=== PATIENT | female | born 1950 | race African-American/Black ===

== ENCOUNTER 2019-10-21 08:30 | Outpatient (CLI) | payer MEDICARE, SELFPAY ==
--- NOTE | ~2019-10-21 | DEXA_ITS ---
Bone Density Report Name: Emma Fraire Age: 69 Sex: Female Ethnicity: Black Date of : 1950 Indication: postmenopausal; hysterectomy; Referring Provider: CRISTIANE HAMM Study: Bone densitometry was performed. Exam Date: October 21, 2019 Accession number: [id number] Bone Density: Region BMD T-score Z-score Classification AP Spine (L1-L4) 1.121 0.7 2.1 Normal Femoral Neck (Left) 0.799 -0.5 0.4 Normal Total Hip (Left) 0.925 -0.1 0.4 Normal Total Hip Bilateral Avg 0.895 -0.4 0.3 Normal Femoral Neck (Right) 0.711 -1.2 -0.3 Osteopenia Total Hip (Right) 0.864 -0.6 0.1 Normal World Health Organization criteria for BMD impression classify patients as: Normal (T-score at or above -1.0), Osteopenia (T-score between -1.0 and -2.5), or Osteoporosis (T-score at or below -2.5). 10-year Fracture Risk(1): Major Osteoporotic Fracture 3.8% Hip Fracture 0.5% Reported Risk Factors: [place] (Black), Neck BMD=0.711, BMI=22.5 (1) FRAX(R) Version 3.08. Fracture probability calculated for an untreated patient. Fracture probability may be lower if the patient has received treatment. Previous Exams: Region Exam Age BMD T-score BMD Change BMD Change Date g/cm2 vs Baseline vs Previous AP Spine(L1-L4) 10/21/2019 69 1.121 0.7 -0.179(-13.8%) -0.114(-9.2%)* 05/13/2016 65 1.235 1.7 -0.065(-5.0%)# -0.032(-2.5%)* 04/07/2014 63 1.267 2.0 -0.033(-2.6%)# 0.026(2.1%)# 06/13/2011 60 1.241 1.8 -0.059(-4.6%)# -0.046(-3.6%)# 03/16/2007 56 1.287 2.2 -0.013(-1.0%) -0.013(-1.0%) 04/19/2002 51 1.301 2.3 Total Hip(Left) 10/21/2019 69 0.925 -0.1 -0.072(-7.2%)# -0.029(-3.0%)* 05/13/2016 65 0.954 0.1 -0.043(-4.3%)# -0.034(-3.5%)* 04/07/2014 63 0.988 0.4 -0.009(-0.9%)# -0.005(-0.5%)# 06/13/2011 60 0.993 0.4 -0.004(-0.4%)# 0.010(1.1%)# 03/16/2007 56 0.983 0.3 -0.014(-1.4%) -0.014(-1.4%) 04/19/2002 51 0.997 0.4 Total Hip(Right) 10/21/2019 69 0.864 -0.6 -0.090(-9.4%)# -0.048(-5.2%)* 05/13/2016 65 0.912 -0.2 -0.042(-4.4%)# -0.014(-1.5%) 04/07/2014 63 0.926 -0.1 -0.028(-2.9%)# -0.001(-0.1%)# 06/13/2011 60 0.926 -0.1 -0.027(-2.9%)# -0.012(-1.3%)# 03/16/2007 56 0.938 0.0 -0.015(-1.6%) -0.015(-1.6%) 04/19/2002 51 0.954 0.1 *Denotes significance at 95% confidence level, LSC for AP Spine = 0.022 g/cm2, LSC for Total Hip = 0.027 g/cm2 Clinical Information Provided by Patient: Has used the following medica
--- NOTE | ~2019-10-21 | MM_ITS ---
EXAMINATION: MM screening [facility] BI w lexa HISTORY: Screening mammogram, family history of breast cancer in her daughter. TECHNIQUE: Craniocaudal and mediolateral oblique 3-D tomosynthesis images were obtained and synthetic 2-D images were generated. CAD analysis was submitted and interpreted. COMPARISON: 07/17/2018, 06/26/2017 BREAST PARENCHYMAL COMPOSITION: There are scattered areas of fibroglandular density. FINDINGS: Scattered benign-appearing calcifications are present. There is no evidence of suspicious m ass, calcification, or architectural distortion to suggest malignancy in either breast. There has bee n no suspicious interval change. IMPRESSION: 1. No mammographic evidence of malignancy. 2. Recommend routine screening mammography in one year. BI-RADS Category 2: Benign finding(s). Reviewed, dictated and finalized at location A.
== END 2019-10-21 08:31 | disposition home or self-care (01) ==
PROVIDERS: PCP Family Medicine; Visit Provider Family Medicine
DX: Z12.31 Encounter for screening mammogram for malignant neoplasm of breast (principal); Z78.0 Asymptomatic menopausal state; E55.9 Vitamin D deficiency, unspecified; M85.851 Other specified disorders of bone density and structure, right thigh
CPT/HCPCS: 77063; 77067; 77080

== ENCOUNTER 2019-11-15 00:04 | Outpatient (CLI) | payer MEDICARE, SELFPAY ==
[2019-11-15 17:13] LABS: SARS-CoV-2 RNA PCR Negative
== END 2019-11-15 00:05 | disposition home or self-care (01) ==
LOC: ANHCOVIDDT 00:05
PROVIDERS: PCP Family Medicine; Visit Provider Internal Medicine Gastroenterology
DX: Z01.812 Encounter for preprocedural laboratory examination (principal); Z20.828 Contact with and (suspected) exposure to other viral communicable diseases
CPT/HCPCS: 87635; C9803; U0003

== ENCOUNTER 2019-11-17 01:49 | Day surgery (SDC) | payer MEDICARE, SELFPAY ==
[2019-11-10 13:40] VITALS: BMI 22.6
[2019-11-17 07:10] VITALS: BP 161/96; PULSE 97; RESP 18; TEMP 36.2; O2SAT 100
[2019-11-17] MEDS: LACTATED RINGERS 1,000 ML 150 ML IV CONT (07:24)
--- NOTE | 2019-11-17 07:35 | WPDANESEPPF ---
Anes - Initial Pre Proc Eval Procedure: Operation Date: 11/17/19 08:30 Proposed Procedures p Screening Colonoscopy - Kaushik Tarango MD Date/Time: 11/17/19 07:35 Surgeon: Kaushik Tarango MD Pre Op Diagnosis: Hx Colon Polyps Patient Data Age: 69 Gender: F Height: 1.63 m Weight: 57.9 kg Last Vital Signs Temp 36.2 C L 11/17/19 07:10 Pulse 97 11/17/19 07:10 Resp 18 11/17/19 07:10 BP 161/96 H 11/17/19 07:10 Pulse Ox 100 11/17/19 07:10 Allergies Allergy/AdvReac Type Severity Reaction Status Date / Time hydrochlorothiazide Allergy Unknown burning Verified 11/17/19 07:09 sensation leg lisinopril Allergy Unknown cough Verified 11/17/19 07:09 Home Medications Medication Instructions Recorded Confirmed Type clonidine HCl 0.2 mg tablet 0.4 mg PO QPM #180 tablet 06/09/19 11/10/19 Rx simvastatin 40 mg tablet 40 mg PO DAILY #90 tablet 06/15/19 11/10/19 Rx amitriptyline 25 mg tablet 25 mg PO .qhs #90 tablet 08/09/19 11/10/19 Rx losartan 50 mg tablet 50 mg .ROUTE .COMPLEX #90 tablet 09/08/19 11/10/19 Rx aspirin [Aspirin Low Dose] 81 mg PO DAILY 11/10/19 11/10/19 History methylcellulose (with sugar) 1 tbsp PO DAILY 11/10/19 11/10/19 History [Citrucel (sucrose)] multivit with min-folic acid 0.4 mg PO DAILY 11/10/19 11/10/19 History [Adult One Daily Multivitamin] Patient hx anesthesia problems: none Family hx anesthesia problems: none PMFSH Past Medical History Medical History (Updated 11/16/19 @ 09:05 by Nelson Sharma DO) Chronic pain Family history of colonic polyps Hypertension Mixed hyperlipidemia Osteopenia 09/2019 right femoral neck (-0.3) Surgical History Surgical History (Updated 11/16/19 @ 09:05 by Nelson Sharma DO) History of hysterectomy Family History Family History (Updated 07/07/18 @ 10:40 by DOCTOR UNKNOWN) Father Diabetes mellitus Hypertension Family history of elevated blood lipids Mother Diabetes mellitus Family history of glaucoma Hypertension Family history of elevated blood lipids Family history of cardiovascular disease Sibling Hypertension Family history of malignant neoplasm of uterus, Onset Age: 36 Other Colon polyp Family history of hypercholesterolemia Family history of malignant neoplasm of breast in first degree relative Social History Social History Smoking status: Never smoker Alcohol intake: current Anes - Eval Final PreProcedure Day of Procedure 11/17/19 07:35 Patient weight: normal Heart: regular rate and rhythm Lungs: clear to auscultation and normal air movement Airway: Mallampati scale class II Neurological: alert and oriented Last oral intake: >/= 8 hours ASA classification: II Emergent: no Anesthetic plan: proceed Anesthesia type and monitoring: general GIVS and standard monitoring Informed Consent: The patient's anesthetic plan and its attendant risks and benefits were discussed with the patient/family/POA. Questions were solicited and answers provided to the satisfaction of the patient/family/POA.
--- NOTE | 2019-11-17 08:12 | WPDGICN ---
Assessment and Plan Assessment and plan (1) Family history of colonic polyps: Code(s): Z83.71 - Family history of colonic polyps Status: Acute Assessment and Plan: Patient's mother has had colon polyps. Would recommend patient have follow-up colonoscopy at about every 5 year interval. (2) Family history of colon cancer requiring screening colonoscopy: Code(s): Z80.0 - Family history of malignant neoplasm of digestive organs Status: Acute Assessment and Plan: Patient reports that her sister has had colon cancer. Plan is for patient to continue surveillance colonoscopy at 5 year intervals. GI Consult Note Consult date/time: 11/17/19 08:12 HPI: Emma Fraire is a 69 year old female Seen in evaluation at the request of Dr. Rico Villa. Patient presents today for neoplasia screening. Her current weight appetite bowel movements are normal. She denies abdominal pain. She denies any blood in her stools. She reports a distant history of colon polyps. Her family history is significant that her mother is also had colon polyps a sister has had colon cancer. At the present time she states that her current weight appetite bowel movements are normal. She denies any blood in her stools.Her last colonoscopy was in 2013. Review of Systems Review of Systems: All systems reviewed & are unremarkable except as noted in HPI and below PMFSH Past Medical History Medical History Chronic pain Family history of colonic polyps Hypertension Mixed hyperlipidemia Osteopenia 09/2019 right femoral neck (-0.3) Surgical History Surgical History History of hysterectomy Family History Family History Father Diabetes mellitus Hypertension Family history of elevated blood lipids Mother Diabetes mellitus Family history of glaucoma Hypertension Family history of elevated blood lipids Family history of cardiovascular disease Sibling Hypertension Family history of malignant neoplasm of uterus, Onset Age: 36 Other Colon polyp Family history of hypercholesterolemia Family history of malignant neoplasm of breast in first degree relative Social History Social History Smoking status: Never smoker Alcohol intake: current Meds Home Medications and Allergies Home Medications Medication Instructions Recorded Confirmed Type clonidine HCl 0.2 mg tablet 0.4 mg PO QPM #180 tablet 06/09/19 11/10/19 Rx simvastatin 40 mg tablet 40 mg PO DAILY #90 tablet 06/15/19 11/10/19 Rx amitriptyline 25 mg tablet 25 mg PO .qhs #90 tablet 08/09/19 11/10/19 Rx losartan 50 mg tablet 50 mg .ROUTE .COMPLEX #90 tablet 09/08/19 11/10/19 Rx aspirin [Aspirin Low Dose] 81 mg PO DAILY 11/10/19 11/10/19 History methylcellulose (with sugar) 1 tbsp PO DAILY 11/10/19 11/10/19 History [Citrucel (sucrose)] multivit with min-folic acid 0.4 mg PO DAILY 11/10/19 11/10/19 History [Adult One Daily Multivitamin] Allergies Allergy/AdvReac Type Severity Reaction Status Date / Time hydrochlorothiazide Allergy Unknown burning Verified 11/17/19 07:09 sensation leg lisinopril Allergy Unknown cough Verified 11/17/19 07:09 Vital Signs Vital Signs - 24 hr 11/17/19 07:10 Temperature 36.2 C L Pulse Rate 97 Respiratory Rate 18 Blood Pressure 161/96 H Pulse Oximetry 100 Exam Narrative: Exam Narrative: Physical exam reveals patient to be alert. Vital signs stable. HEENT exam unremarkable. Lungs are clear to auscultation and percussion. Heart is without murmur or extra sounds. Abdominal exam bowel sounds are present soft she has mild superficial tenderness in the left groin area. Extremities are without clubbing cyanosis or edema. Digital external rectal exam normal.
[2019-11-17 09:02] VITALS: BP 115/73; PULSE 71; RESP 19; O2SAT 100
[2019-11-17 09:12] VITALS: BP 121/79; PULSE 71; RESP 19; O2SAT 100
[2019-11-17 09:22] VITALS: BP 158/96; PULSE 67; RESP 19; O2SAT 100
== END 2019-11-17 09:44 | disposition home or self-care (01) ==
PROVIDERS: PCP Family Medicine; Visit Provider Internal Medicine Gastroenterology
PROC: 0DJD8ZZ Inspection of Lower Intestinal Tract, Via Natural or Artificial Opening Endoscopic (ICD-10-PCS; CPT 45378; principal; 2019-11-17 08:30)
DX: Z12.11 Encounter for screening for malignant neoplasm of colon (principal); D12.8 Benign neoplasm of rectum; K57.30 Diverticulosis of large intestine without perforation or abscess without bleeding; K64.8 Other hemorrhoids; Z80.0 Family history of malignant neoplasm of digestive organs; Z83.71 Family history of colonic polyps; Z79.82 Long term (current) use of aspirin; I10 Essential (primary) hypertension; E78.2 Mixed hyperlipidemia; M85.80 Other specified disorders of bone density and structure, unspecified site
CPT/HCPCS: 45385; 88305; J2704; J7120

== ENCOUNTER 2020-11-24 10:31 | Outpatient (CLI) | payer MEDICARE, SELFPAY ==
--- NOTE | ~2020-11-24 | MM_ITS ---
EXAMINATION: MM screening [facility] BI w lexa HISTORY: Screening TECHNIQUE: Craniocaudal and mediolateral oblique 3-D tomosynthesis images were obtained and synthetic 2-D images were generated. CAD analysis was submitted and interpreted. COMPARISON: Comparison to multiple prior studies sequentially, with oldest reviewed study dated 05/2017. BREAST PARENCHYMAL COMPOSITION: The breasts are heterogeneously dense, which may obscure small masses . FINDINGS: No significant change to bilateral breast calcifications. There are tissue markers in the b reasts, consistent with previous benign biopsies. There is no evidence of suspicious mass, calcificat ion, or architectural distortion to suggest malignancy in either breast. There has been no suspicious interval change. IMPRESSION: 1. No mammographic evidence of malignancy. 2. Recommend routine screening mammography in one year. BI-RADS Category 2: Benign finding(s). Reviewed, dictated and finalized at location A.
== END 2020-11-24 10:32 | disposition home or self-care (01) ==
LOC: ANHIMG 10:35
PROVIDERS: PCP Family Medicine; Visit Provider Family Medicine
DX: Z12.31 Encounter for screening mammogram for malignant neoplasm of breast (principal)
CPT/HCPCS: 77063; 77067

== ENCOUNTER 2022-03-08 09:58 | Outpatient (CLI) | payer MEDICARE, SELFPAY ==
--- NOTE | ~2022-03-08 | DEXA_ITS ---
Bone Density Report Name: KEM RAMIREZ Age: 71 Sex: Female Ethnicity: Black Date of : 1950 Indication: postmenopausal; screening for osteoporosis; hysterectomy; Referring Provider: DANY RICHARDSON Study: Bone densitometry was performed. Exam Date: March 08, 2022 Accession number: [id number] Bone Density: Region BMD T-score Z-score Classification AP Spine(L1-L4) 1.150 0.9 2.5 Normal Femoral Neck (Left) 0.805 -0.4 0.5 Normal Total Hip (Left) 0.886 -0.5 0.3 Normal Femoral Neck (Right) 0.750 -0.9 0.1 Normal Total Hip (Right) 0.845 -0.8 0.0 Normal Total Hip Mean 0.866 -0.7 0.2 Normal World Health Organization criteria for BMD impression classify patients as: Normal (T-score at or above -1.0), Osteopenia (T-score between -1.0 and -2.5), or Osteoporosis (T-score at or below -2.5). 10-year Fracture Risk: FRAX not reported because: All T-scores for Spine Total, Hip Total, Femoral Neck at or above -1.0 Previous Exams: Region Exam Age BMD T-score BMD Change BMD Change Date g/cm2 vs Baseline vs Previous AP Spine (L1-L4) 03/08/2022 71 1.150 0.9 -0.118 (-9.3%) 0.028 (2.5%)* 10/21/2019 69 1.121 0.7 -0.146 (-11.5% -0.114 (-9.2%) 05/13/2016 65 1.235 1.7 -0.032 (-2.5%) -0.032 (-2.5%) 04/07/2014 63 1.267 2.0 Total Hip(Left) 03/08/2022 71 0.886 -0.5 -0.102 (-10.3% -0.039 (-4.2%) 10/21/2019 69 0.925 -0.1 -0.063 (-6.4%) -0.029 (-3.0%) 05/13/2016 65 0.954 0.1 -0.034 (-3.5%) -0.034 (-3.5%) 04/07/2014 63 0.988 0.4 Total Hip(Right) 03/08/2022 71 0.845 -0.8 -0.080 (-8.7%) -0.019 (-2.2%) 10/21/2019 69 0.864 -0.6 -0.062 (-6.7%) -0.048 (-5.2%) 05/13/2016 65 0.912 -0.2 -0.014 (-1.5%) -0.014 (-1.5%) 04/07/2014 63 0.926 -0.1 *Denotes significance at 95% confidence level, LSC for AP Spine = 0.022 g/cm2, LSC for Total Hip = 0.027 g/cm2 Clinical Information Provided by Patient: Has used the following medications: Vitamin D Has the following medical conditions: Hysterectomy Patient maximum height was 63 Menopause Age: 49 No regular weight bearing exercise Onset of menses at age 13 Number of children 3 Impression: The patient has normal bone mass. The BMD for the Total Hip(Left) decreased, changing by -4.2% since the last DXA exam. Discussion: BONE DENSITY IS ABOVE THE MINIMUM DESIRABLE LEVEL AT ALL SKELETAL SITES TESTED. This patient?s bone mineral density i
--- NOTE | ~2022-03-08 | MM_ITS ---
EXAMINATION: MM screening [facility] BI w lexa HISTORY: Screening TECHNIQUE: Craniocaudal and mediolateral oblique 3-D tomosynthesis images were obtained and synthetic 2-D images were generated. CAD analysis was submitted and interpreted. COMPARISON: Comparison to multiple prior studies sequentially, with oldest reviewed study dated 05/2017. BREAST PARENCHYMAL COMPOSITION: The breasts are heterogeneously dense, which may obscure small masses FINDINGS: Stable benign-appearing bilateral breast calcifications. There is no evidence of suspicious mass, calcification, or architectural distortion to suggest malignancy in either breast. There has b een no suspicious interval change. IMPRESSION: 1. No mammographic evidence of malignancy. 2. Recommend routine screening mammography in one year. BI-RADS Category 2: Benign finding(s). Reviewed, dictated and finalized at location A.
== END 2022-03-08 09:59 | disposition home or self-care (01) ==
PROVIDERS: PCP Family Medicine; Visit Provider Physician Assistant
DX: Z12.31 Encounter for screening mammogram for malignant neoplasm of breast (principal); Z78.0 Asymptomatic menopausal state
CPT/HCPCS: 77063; 77067; 77080

== ENCOUNTER 2023-06-25 12:59 | Outpatient (CLI) | payer MEDICARE, SELFPAY ==
--- NOTE | ~2023-06-25 | MM_ITS ---
EXAMINATION: MM screening [facility] BI w lexa HISTORY: Screening TECHNIQUE: Craniocaudal and mediolateral oblique 3-D tomosynthesis images were obtained and synthetic 2-D images were generated. CAD analysis was submitted and interpreted. COMPARISON: Comparison to multiple prior studies sequentially, with oldest reviewed study dated 05/2017. BREAST PARENCHYMAL COMPOSITION: Dense: The breasts are heterogeneously dense, which may obscure small masses FINDINGS: Clustered bilateral breast calcifications in the upper outer quadrants and scattered throug hout both breasts are unchanged from prior studies. There is no evidence of suspicious mass, calcific ation, or architectural distortion to suggest malignancy in either breast. There has been no suspicio us interval change. IMPRESSION: 1. No mammographic evidence of malignancy. 2. Recommend routine screening mammography in one year. BI-RADS Category 2: Benign finding(s). Reviewed, dictated and finalized at location A. HYSICAL COMPUTER
== END 2023-06-25 13:00 | disposition home or self-care (01) ==
LOC: ANHIMG 13:01
PROVIDERS: PCP Family Medicine; Visit Provider Family Medicine
DX: Z12.31 Encounter for screening mammogram for malignant neoplasm of breast (principal)
CPT/HCPCS: 77063; 77067

== ENCOUNTER 2024-08-27 13:43 | Outpatient (CLI) | payer MEDICARE, SELFPAY ==
--- NOTE | ~2024-08-27 | MM_ITS ---
EXAMINATION: MM screening [facility] BI w lexa HISTORY: Screening TECHNIQUE: Craniocaudal and mediolateral oblique 3-D tomosynthesis images were obtained and synthetic 2-D images were generated. CAD analysis was submitted and interpreted. COMPARISON: Comparison to multiple prior studies sequentially, with oldest reviewed study dated 05/2017. BREAST PARENCHYMAL COMPOSITION: Not dense: There are scattered areas of fibroglandular density. 3 FINDINGS: Scattered bilateral punctate breast calcifications are not significantly changed from prior examinations. There is no evidence of suspicious mass, calcification, or architectural distortion to suggest malignancy in either breast. There has been no suspicious interval change. IMPRESSION: 1. No mammographic evidence of malignancy. 2. Recommend routine screening mammography in one year. BI-RADS Category 2: Benign finding(s). Reviewed, dictated and finalized at location A.
== END 2024-08-27 13:44 | disposition home or self-care (01) ==
LOC: ANHIMG 13:45
PROVIDERS: PCP Family Medicine; Visit Provider Family Medicine
DX: Z12.31 Encounter for screening mammogram for malignant neoplasm of breast (principal)
CPT/HCPCS: 77063; 77067

== ENCOUNTER 2024-09-06 01:06 | Day surgery (SDC) | payer MEDICARE, SELFPAY ==
[2024-09-02 12:06] VITALS: BMI 20.5
[2024-09-06 08:55] VITALS: BP 166/81; PULSE 114; RESP 20; TEMP 36.6; O2SAT 100
[2024-09-06] MEDS: LACTATED RINGERS 1,000 ML 150 ML IV CONT (09:06)
--- NOTE | 2024-09-06 09:31 | P.PNAN_ITS ---
Anes - Initial Pre Proc Eval Procedure: Operation Date: 09/06/24 10:00 Proposed Procedures p Colonoscopy - Iron Alvarado MD Date/Time: 09/06/24 09:31 Surgeon: Iron Alvarado MD Pre Op Diagnosis: Family history of malignant neoplasm of digestive Patient Data Age: 74 Gender: F Height: 1.63 m Weight: 54.8 kg Last Vital Signs Temp 97.9 F 09/06/24 08:55 Pulse 114 H 09/06/24 08:55 Resp 20 09/06/24 08:55 BP 166/81 H 09/06/24 08:55 Pulse Ox 100 09/06/24 08:55 O2 Del Method Room Air 09/06/24 08:55 Allergies Allergy/AdvReac Type Severity Reaction Status Date / Time lisinopril AdvReac Mild cough Verified 09/06/24 08:53 Home Medications ?Medication ?Instructions ?Recorded ?Confirmed ?Type aspirin 81 mg tablet,delayed 81 mg PO DAILY 11/10/19 09/06/24 History release (Marianna Low Dose Aspirin) multivitamin with minerals-folic 0.4 mg PO DAILY 11/10/19 09/06/24 History acid 0.4 mg tablet (Adult One Daily Multivitamin) cholecalciferol (vitamin D3) 50 50 mcg PO DAILY 09/19/20 09/06/24 History mcg (2,000 unit) capsule mometasone 50 mcg/actuation nasal 2 spray intranasal DAILY 09/19/20 09/06/24 History spray (Nasonex) amlodipine 10 mg tablet 10 mg PO DAILY #90 tabs 02/23/24 09/06/24 Rx clonidine HCl 0.2 mg tablet See Rx Instructions .Route 05/03/24 09/06/24 Rx .COMPLEX #180 tabs amitriptyline 25 mg tablet See Rx Instructions .Route 05/27/24 09/06/24 Rx .COMPLEX #90 tabs simvastatin 40 mg tablet See Rx Instructions .Route 05/27/24 09/06/24 Rx .COMPLEX #90 tabs azilsartan medoxomil 40 1 tablet PO DAILY #90 tabs 08/10/24 09/06/24 Rx mg-chlorthalidone 12.5 mg tablet (Edarbyclor) Patient hx anesthesia problems: none Family hx anesthesia problems: none Results Review: All pre-operative results and documents have been reviewed as part of the pre- operative evaluation. [facility] Past Medical History Medical History Chronic pain Family history of colonic polyps Mixed hyperlipidemia Osteopenia 09/2019 right femoral neck (-0.3) Surgical History Surgical History History of hysterectomy Full hysterectomy 1999 Family History Family History Father Diabetes mellitus Hypertension Family history of elevated blood lipids Mother Diabetes mellitus Family history of glaucoma Hypertension Family history of elevated blood lipids Family history of cardiovascular disease Sibling Hypertension Family history of malignant neoplasm of uterus, Onset Age: 36 Other Colon polyp Family history of hypercholesterolemia Family history of malignant neoplasm of breast in first degree relative Social History Social History Smoking status: Never smoker Alcohol intake: never Alcohol use details: rarely Substance use: current Substance use type: marijuana Other substance usage details: uses marijuana daily Do You Feel Safe in your Home?: Yes Lack of Transportation: No Lack of Food: Never True Current Housing: I Have Housing Concerned About Future Housing: No Difficulty Paying Gas/Electric Bills: No Difficulty Paying for Meds: No Currently Unemployed: No Education: Master's Degree or Higher Difficulty w/ Childcare or Family Care: No Living arrangements: with family Spiritual care concerns: No Anes - Eval Final PreProcedure Day of Procedure 09/06/24 09:31 Patient weight: normal Heart: regular rate and rhythm Lungs: clear to auscultation Airway: Mallampati scale class II Neurological: alert and oriented Last oral intake: >/= 8 hours ASA classification: II Emergent: no Anesthetic plan: proceed Anesthesia type and monitoring: general GIVS and standard monitoring Results Review: All pre-operative results and documents have been reviewed as part of the pre- operative evaluation. Informed Consent: The patient's anesthetic plan and its attendant risks and benefits were discussed with the patient/family/POA. Questions were solicited and answers provided to the satisfaction of the patient/family/POA.
--- NOTE | 2024-09-06 09:53 | P.HP_ITS ---
H&P: HPI History of Present Illness Date/Time: 09/06/24 09:53 Chief Complaint: Family history of colon cancer Narrative: This patient has family history of colorectal cancer. her mother had colorectal cancer at age 62. Review of Systems Review of Systems: All systems reviewed & are unremarkable except as noted in HPI and below PMFSH Past Medical History Medical History Chronic pain Family history of colonic polyps Mixed hyperlipidemia Osteopenia 09/2019 right femoral neck (-0.3) Surgical History Surgical History History of hysterectomy Full hysterectomy 1999 Family History Family History Father Diabetes mellitus Hypertension Family history of elevated blood lipids Mother Diabetes mellitus Family history of glaucoma Hypertension Family history of elevated blood lipids Family history of cardiovascular disease Sibling Hypertension Family history of malignant neoplasm of uterus, Onset Age: 36 Other Colon polyp Family history of hypercholesterolemia Family history of malignant neoplasm of breast in first degree relative Social History Social History Smoking status: Never smoker Alcohol intake: never Alcohol use details: rarely Substance use: current Substance use type: marijuana Other substance usage details: uses marijuana daily Do You Feel Safe in your Home?: Yes Lack of Transportation: No Lack of Food: Never True Current Housing: I Have Housing Concerned About Future Housing: No Difficulty Paying Gas/Electric Bills: No Difficulty Paying for Meds: No Currently Unemployed: No Education: Master's Degree or Higher Difficulty w/ Childcare or Family Care: No Living arrangements: with family Spiritual care concerns: No Meds Home Medications and Allergies Home Medications ?Medication ?Instructions ?Recorded ?Confirmed ?Type aspirin 81 mg tablet,delayed 81 mg PO DAILY 11/10/19 09/06/24 History release (Marianna Low Dose Aspirin) multivitamin with minerals-folic 0.4 mg PO DAILY 11/10/19 09/06/24 History acid 0.4 mg tablet (Adult One Daily Multivitamin) cholecalciferol (vitamin D3) 50 50 mcg PO DAILY 09/19/20 09/06/24 History mcg (2,000 unit) capsule mometasone 50 mcg/actuation nasal 2 spray intranasal DAILY 09/19/20 09/06/24 History spray (Nasonex) amlodipine 10 mg tablet 10 mg PO DAILY #90 tabs 02/23/24 09/06/24 Rx clonidine HCl 0.2 mg tablet See Rx Instructions .Route 05/03/24 09/06/24 Rx .COMPLEX #180 tabs amitriptyline 25 mg tablet See Rx Instructions .Route 05/27/24 09/06/24 Rx .COMPLEX #90 tabs simvastatin 40 mg tablet See Rx Instructions .Route 05/27/24 09/06/24 Rx .COMPLEX #90 tabs azilsartan medoxomil 40 1 tablet PO DAILY #90 tabs 08/10/24 09/06/24 Rx mg-chlorthalidone 12.5 mg tablet (Edarbyclor) Allergies Allergy/AdvReac Type Severity Reaction Status Date / Time lisinopril AdvReac Mild cough Verified 09/06/24 08:53 Vital Signs Vital Signs - 24 hr 09/06/24 08:55 Temperature 97.9 F Pulse Rate 114 H Respiratory Rate 20 Blood Pressure 166/81 H Pulse Oximetry 100 Oxygen Delivery Room Air Exam Const: General: cooperative and healthy appearing Resp: Effort & Inspection: normal respiratory effort and able to speak in complete sentences Auscultation: clear to auscultation bilaterally Cardio: Rate: regular rate Rhythm: regular rhythm GI: Inspection: normal to inspection GI Palp: No No hepatosplenomegaly pres ent Auscultation: normal bowel sounds Rectal Exam: deferred Skin: General skin exam: normal color Psych: Appearance: grossly normal Mental Status: mental status grossly normal Assessment and Plan Assessment and plan (1) Family history of colon cancer requiring screening colonoscopy: Code(s): Z80.0 - Family history of malignant neoplasm of digestive organs Status: Acute Assessment and Plan: The patient is deemed a good candidate for the procedure. Consent signed. Will proceed.
[2024-09-06 10:18] VITALS: BP 127/80; PULSE 83; RESP 18; O2SAT 100
[2024-09-06 10:28] VITALS: BP 129/76; PULSE 80; RESP 20; O2SAT 100
[2024-09-06 10:38] VITALS: BP 136/79; PULSE 79; RESP 20; O2SAT 100
== END 2024-09-06 11:06 | disposition home or self-care (01) ==
PROVIDERS: PCP Family Medicine; Referring Provider Student in an Organized Health Care Education/Training Program; Visit Provider Internal Medicine Gastroenterology
PROC: 0DJD8ZZ Inspection of Lower Intestinal Tract, Via Natural or Artificial Opening Endoscopic (ICD-10-PCS; CPT 45378; principal; 2024-09-06 10:00)
DX: Z12.11 Encounter for screening for malignant neoplasm of colon (principal); K57.30 Diverticulosis of large intestine without perforation or abscess without bleeding; E78.2 Mixed hyperlipidemia; G89.29 Other chronic pain; F12.90 Cannabis use, unspecified, uncomplicated; Z79.82 Long term (current) use of aspirin; Z98.890 Other specified postprocedural states; Z83.719 Family history of colon polyps, unspecified; Z80.3 Family history of malignant neoplasm of breast; Z80.49 Family history of malignant neoplasm of other genital organs; Z80.0 Family history of malignant neoplasm of digestive organs; Z82.49 Family history of ischemic heart disease and other diseases of the circulatory system
CPT/HCPCS: G0105; J2704; J7120

== ENCOUNTER 2025-01-25 11:34 | Outpatient (CLI) | payer MEDICARE, SELFPAY ==
--- NOTE | ~2025-01-25 | CT_ITS ---
EXAMINATION: CT abdomen pelvis wo con DATE: 01/25/2025 12:08 INDICATION: Unspecified abdominal pain TECHNIQUE: Computed tomography (CT) of the abdomen and pelvis was performed without intravenous contrast. Automated exposure control and iterative reconstruction technique were employed. The dose-length product was 355.21 mGy-cm. COMPARISON: None FINDINGS: Lung bases are clear. Heart size is normal. No pericardial or pleural effusion. Liver, gallbladder, spleen, pancreas, bilateral adrenal glands and right kidney are normal. 7 mm left renal cyst. There is mild colonic diverticulosis with a sigmoid predominance. There is no adjacent inflammatory change to suggest diverticulitis. Small bowel and appendix are normal. Bladder is normal. The uterus is not identified and has likely been surgically resected. Transverse likely section scar extending transversely across anterior pelvic wall. No free intraperitoneal gas or fluid. No pathologically enlarged abdominal or pelvic lymphadenopathy. Severe disc height loss at T10-T11 and L5-S1 with mild intervening lumbar and lower thoracic spondylosis. IMPRESSION: 1. No acute intra-abdominal/pelvic process. Reviewed, dictated and finalized at location A.
== END 2025-01-25 11:35 | disposition home or self-care (01) ==
LOC: GOSHIMG 11:34
PROVIDERS: PCP Family Medicine; Visit Provider Student in an Organized Health Care Education/Training Program
DX: R10.9 Unspecified abdominal pain (principal)
CPT/HCPCS: 74176

== ENCOUNTER 2025-01-25 12:26 | Emergency (ER) | payer MEDICARE, SELFPAY ==
--- NOTE | ~2025-01-25 | XR_ITS ---
EXAMINATION: XR chest 2V 01/25/2025 14:21 INDICATION: Shortness of breath PROCEDURE: AP and lateral views of the chest COMPARISON: No prior studies for comparison. FINDINGS: The lungs are clear. The cardiomediastinal silhouette is within normal limits. There are no pleural effusions. There is no pneumothorax suspected. IMPRESSION: 1: NO ACUTE CARDIOPULMONARY DISEASE. Reviewed, dictated and finalized at location O.
--- NOTE | ~2025-01-25 | CT_ITS ---
EXAMINATION: CT chest abdomen pelvis w con DATE: 01/25/2025 16:43 CDT INDICATION: Dyspnea. Lower abdominal pain. TECHNIQUE: Computed tomography (CT) of the chest, abdomen, and pelvis was performed with 100 cc Omnipaque 350 intravenous contrast. The dose-length product was 300.16 mGy-cm. Automated exposure control and iterative reconstruction technique were employed. COMPARISON: None FINDINGS: CHEST CT: Heart size normal. No significant pleural or pericardial effusion. No thoracic lymphadenopathy. No focal airspace consolidation. No suspicious pulmonary nodules or masses. No pneumothorax. No endobronchial lesions. ABDOMEN/PELVIS CT: Nonobstructive bowel gas pattern. Fatty infiltration of the liver. The spleen, pancreas, adrenal glands and right kidney are unremarkable. There are small subcentimeter hypodensities of the left kidney, most likely cysts. Gallbladder is present. Colonic diverticulosis without evidence for diverticulitis. Normal appendix. No significant vascular abnormality. No lymphadenopathy. No acute osseous abnormality. IMPRESSION: 1. No acute abnormality. Reviewed, dictated and finalized at location O. IMPRESSION: 1. No acute abnormality.
[2025-01-25 12:29] VITALS: BP 141/69; PULSE 106; RESP 16; TEMP 36.8; O2SAT 100
--- NOTE | 2025-01-25 13:43 | ECG_ITS ---
Test Date: 2025-01-25 13:53:41 Measurements Intervals [place] Rate: 96 P: 59 [place]: 120 QRS: 9 QRSD: 70 T: 59 QT: 347 QTc: 439 Interpretive Statements SINUS RHYTHM POSSIBLE LEFT ATRIAL ENLARGEMENT [-0.1mV P-WAVE IN V1/V2] LOW QRS VOLTAGE IN PRECORDIAL LEADS [QRS DEFLECTION < 1.0 mV IN CHEST LEADS] LONG QT INTERVAL ABNORMAL ECG No previous ECG available for comparison Electronically Signed On 01-25-2025 16:06:16 CDT by Aniket Griffith M.D.
[2025-01-25 14:12] LABS: Hematocrit 45.3 % (37.0-47.0); Hemoglobin 14.1 g/dL (12.0-15.0); Immature Granulocyte Percent A 0.7 % (0-0.5); Lymphocytes Absolute Auto 1.54 K/mm3 (0.9-3.2); Mean Corpuscular HGB Conc 31.1 g/dl (32-36); Mean Corpuscular Hemoglobin 25.8 pg (26-34); Mean Corpuscular Volume 82.8 fl (80-100); Nucleated Red Blood Cells Absolute Auto 0.000 K/mm3 (0.0-0.012); Nucleated Red Blood Cells Perc 0.0 % (0.0-0.2); Platelet Count Result 262 k/mm3 (150-375); Red Blood Count 5.47 M/mm3 (4.2-5.4); White Blood Count 7.0 K/mm3 (4.5-10.0)
[2025-01-25 14:45] LABS: NT Pro B Type Natriuretic Pept < 20 pg/mL (19.9-100); Troponin I < 0.012 ng/mL (0.000-0.034)
[2025-01-25] MEDS: HYDROmorphone HCL INJ (*CRX) 1 MG/ML SYR 0.5 MG IV PUSH (14:53)
[2025-01-25] MEDS: LACTATED RINGERS 1,000 ML 999 ML IV CONT (14:53)
[2025-01-25 14:56] LABS: Fractional Inspired Oxygen 21 %; HCO3 VBG 25.6 mEq/l (24.0-30.0); PCO2 VBG 31.3 mmHg (42.0-48.0); PO2 VBG 40.2 mmHg (35.0-45.0)
[2025-01-25 14:56] LABS: Alanine Aminotransferase 34 U/L (6-35); Albumin Level 5.4 g/dL (3.5-5.1); Alkaline Phosphatase 106 U/L (38-126); Anion Gap 16 mmol/L (4-12); Aspartate Amino Transferase 38 U/L (14-36); Bilirubin,Total 0.5 mg/dL (0.2-1.3); Blood Urea Nitrogen 28 mg/dL (7-17); Calcium 11.1 mg/dL (8.4-10.2); Carbon Dioxide 24 mmol/L (22-30); Chloride 97 mmol/L (98-107); Estimated CRCL calculation 34 ml/min; Estimated Glomerular Filt Rate 52; Glucose 117 mg/dL (65-110); Potassium 3.7 mmol/L (3.4-5.0); Sodium 137 mmol/L (137-145); Total Protein 9.3 g/dL (6.3-8.2)
[2025-01-25 14:57] LABS: pH VBG 7.531 (7.300-7.400)
--- NOTE | 2025-01-25 15:02 | ED.GENADULT ---
HPI - General Adult General Chief complaint: Shortness of Breath/Dyspnea Stated complaint: sob Time Seen by Provider: 01/25/25 13:48 History of Present Illness HPI narrative: 74-year-old female presenting ED with chief complaint shortness of breath. After speaking with her she seems are more concerned with abdominal pain. Patient says she has been having lower abdominal pain 7 days. Patient a lower abdominal discomfort 7 days ago though associated subjective fever chills, nausea and vomiting. She ended up disimpacted herself giving herself a glycerin suppository and had a very very large bowel movement which made her feel better. Since then she has still felt unwell. She has not been eating and drinking very much. She says that she feels winded when she walks around. She does not have chest pain cough lower extremity edema or urinary symptoms. Related Data Home Medications ?Medication ?Instructions ?Recorded ?Confirmed ?Last Taken ?Type aspirin 81 mg tablet,delayed 81 mg PO DAILY 11/10/19 01/25/25 09/04/24 History release (Marianna Low Dose Aspirin) multivitamin with minerals-folic 0.4 mg PO DAILY 11/10/19 01/25/25 09/04/24 History acid 0.4 mg tablet (Adult One Daily Multivitamin) cholecalciferol (vitamin D3) 50 50 mcg PO DAILY 09/19/20 01/25/25 09/04/24 History mcg (2,000 unit) capsule azilsartan medoxomil 40 1 tablet PO DAILY 01/25/25 01/25/25 Unknown History mg-chlorthalidone 12.5 mg tablet (Edarbyclor) citrucel BYMOUTH DAILY 01/25/25 01/25/25 Unknown History triamcinolone acetonide 55 mcg 2 spray intranasal DAILY 01/25/25 01/25/25 Unknown History nasal spray aerosol (Nasacort) Allergies Allergy/AdvReac Type Severity Reaction Status Date / Time lisinopril AdvReac Mild cough Verified 01/25/25 10:31 [facility] Past Medical History Medical History Osteopenia 09/2019 right femoral neck (-0.3) Chronic pain Family history of colonic polyps Mixed hyperlipidemia Surgical History Surgical History History of hysterectomy Full hysterectomy 1999 Family History Family History Father Diabetes mellitus Hypertension Family history of elevated blood lipids Mother Diabetes mellitus Family history of glaucoma Hypertension Family history of elevated blood lipids Family history of cardiovascular disease Sibling Hypertension Family history of malignant neoplasm of uterus, Onset Age: 36 Other Colon polyp Family history of hypercholesterolemia Family history of malignant neoplasm of breast in first degree relative Social History Social History Smoking status: Never smoker Alcohol intake: never Alcohol use details: rarely Substance use: current Substance use type: marijuana Other substance usage details: uses marijuana daily Do You Feel Safe in your Home?: Yes Lack of Transportation: No Lack of Food: Never True Current Housing: I Have Housing Concerned About Future Housing: No Difficulty Paying Gas/Electric Bills: No Difficulty Paying for Meds: No Currently Unemployed: No Education: Master's Degree or Higher Difficulty w/ Childcare or Family Care: No Living arrangements: with family Spiritual care concerns: No Exam Narrative: APPEARANCE: No apparent distress. Head: atraumatic. EYES: EOMI, NOSE: Atraumatic NECK: Trachea midline RESPIRATORY: Tachypneic, clear to auscultation 100% on room air CARDIOVASCULAR: Tachycardic, no peripheral edema ABDOMINAL: Tenderness in the lower quadrants without guarding rebound MUSCULOSKELETAl: No obvious deformities NEURO: Alert. Moving 4/4 extremities SKIN:: Warm, dry. Normal color PSYCHIATRIC: Normal affect Course Vital Signs Vital signs: Vital Signs Temperature 98.2 F 01/25/25 12:29 Pulse Rate 106 H 01/25/25 12:29 Respiratory Rate 16 01/25/25 12:29 Blood Pressure 141/69 H 01/25/25 12:29 Pulse Oximetry 100 01/25/25 12:29 Oxygen Delivery Room Air 01/25/25 12:29 Temperature 98.2 F 01/25/25 12:29 Pulse Rate 96 01/25/25 15:39 Respiratory Rate 16 01/25/25 15:39 Blood Pressure 137/71 01/25/25 15:39 Pulse Oximetry 100 01/25/25 15:39 Oxygen Delivery Room Air 01/25/25 15:30 Medical Decision Making MDM Narrative Medical decision making narrative: -Course: 74-year-old female presenting with abdominal pain. Associated symptoms include fatigue decreased oral intake and shortness of breath. This all started after a bout fecal impaction that the patient actually corrected herself with a manual disimpaction and glycerin suppository. Her evaluation here was unremarkable. Laboratory studies were within normal limits. CT abdomen pelvis did not reveal any acute findings although there is significant stool burden. Patient was given fluids as well as pain control. She will be discharged with stool softeners. Given return precautions. -DDX includes but is not limited to: Viral syndrome, sepsis UTI dehydration pneumonia ACS fecal impaction Vital Signs Vital Signs: Vital Signs Temperature 98.2 F 01/25/25 12:29 Pulse Rate 106 H 01/25/25 12:29 Respiratory Rate 16 01/25/25 12:29 Blood Pressure 141/69 H 01/25/25 12:29 Pulse Oximetry 100 01/25/25 12:29 Oxygen Delivery Room Air 01/25/25 12:29 Temperature 98.2 F 01/25/25 12:29 Pulse Rate 96 01/25/25 15:39 Respiratory Rate 16 01/25/25 15:39 Blood Pressure 137/71 01/25/25 15:39 Pulse Oximetry 100 01/25/25 15:39 Oxygen Delivery Room Air 01/25/25 15:30 Lab Data 01/25/25 13:58 01/25/25 13:58 Labs: Lab Results 01/25/25 01/25/25 01/25/25 Range/Units 13:57 13:58 14:29 WBC 7.0 (4.5-10.0) K/mm3 RBC 5.47 H (4.2-5.4) M/mm3 Hgb 14.1 (12.0-15.0) g/dL Hct 45.3 (37.0-47.0) % MCV 82.8 (80-100) fl MCH 25.8 L (26-34) pg MCHC 31.1 L (32-36) g/dl RDW 14.7 H (11.5-14.5) % Plt Count 262 (150-375) k/mm3 MPV 10.9 H (7.4-10.4) fl Immature Gran % (Auto) 0.7 H (0-0.5) % Neut % (Auto) 69.5 (45.5-73.1) % Lymph % (Auto) 21.9 (18.3-44.2) % [place] % (Auto) 7.4 (2.6-8.5) % Eos % (Auto) 0.1 (0-4.4) % Baso % (Auto) 0.4 (0.2-1.2) % Lymph # (Auto) 1.54 (0.9-3.2) K/mm3 [place] # (Auto) 0.5 (0.1-0.6) K/mm3 Eos # (Auto) 0.0 (0-0.3) K/mm3 Baso # (Auto) 0.0 (0.0-0.1) K/mm3 Abs Immat Gran (auto) 0.05 H (0.00-0.031) K/mm3 Absolute Neuts (auto) 4.9 (1.3-6.7) K/mm3 Absolute Nucleated RBC 0.000 (0.0-0.012) K/mm3 Nucleated RBC % 0.0 (0.0-0.2) % D-Dimer 0.28 (<0.48) ug/mL Sodium 137 (137-145) mmol/L Potassium 3.7 (3.4-5.0) mmol/L Chloride 97 L (98-107) mmol/L Carbon Dioxide 24 (22-30) mmol/L Anion Gap 16 H (4-12) mmol/L BUN 28 H (7-17) mg/dL Creatinine 1.04 H (0.7-1.0) mg/dL Estim Creat Clear Calc 34 ml/min Estimated GFR 52 L (59 - ) Glucose 117 H (65-110) mg/dL Calcium 11.1 H (8.4-10.2) mg/dL Total Bilirubin 0.5 (0.2-1.3) mg/dL AST 38 H (14-36) U/L ALT 34 (6-35) U/L Alkaline Phosphatase 106 (38-126) U/L Troponin I < 0.012 (0.000-0.034) ng/mL NT-Pro-B Natriuret Pep < 20 (19.9-100) pg/mL Total Protein 9.3 H (6.3-8.2) g/dL Albumin 5.4 H (3.5-5.1) g/dL Urine Color (Yellow) Urine Appearance (Clear) Urine pH (5.0-9.0) Ur Specific [place] (1.001-1.035) Urine Protein (Negative) mg/dL Urine Glucose (UA) (Negative) mg/dL Urine Ketones (Negative) mg/dL Ur Blood (Man) (Negative) Urine Nitrate (Negative) Urine Bilirubin (Negative) Urine Urobilinogen (<2.0) mg/dL Add Ur Microanalysis Leukocyte Esterase Rfl (Negative) SUJEY/UL Urine RBC (0-2) /hpf Urine WBC (0-3) /hpf Ur Squamous Epith Cells (Few) /hpf Urine Bacteria /hpf Urine Casts Influenza A (RT-PCR) Negative (Negative) Influenza B (RT-PCR) Negative (Negative) RSV (RT-PCR) Negative (Negative) SARS-CoV-2 RNA (RT-PCR) Negative (Negative) 01/25/25 01/25/25 Range/Units 17:42 17:52 WBC (4.5-10.0) K/mm3 RBC (4.2-5.4) M/mm3 Hgb (12.0-15.0) g/dL Hct (37.0-47.0) % MCV (80-100) fl MCH (26-34) pg MCHC (32-36) g/dl RDW (11.5-14.5) % Plt Count (150-375) k/mm3 MPV (7.4-10.4) fl Immature Gran % (Auto) (0-0.5) % Neut % (Auto) (45.5-73.1) % Lymph % (Auto) (18.3-44.2) % Barton % (Auto) (2.6-8.5) % Eos % (Auto) (0-4.4) % Baso % (Auto) (0.2-1.2) % Lymph # (Auto) (0.9-3.2) K/mm3 [place] # (Auto) (0.1-0.6) K/mm3 Eos # (Auto) (0-0.3) K/mm3 Baso # (Auto) (0.0-0.1) K/mm3 Abs Immat Gran (auto) (0.00-0.031) K/mm3 Absolute Neuts (auto) (1.3-6.7) K/mm3 Absolute Nucleated RBC (0.0-0.012) K/mm3 Nucleated RBC % (0.0-0.2) % D-Dimer (<0.48) ug/mL Sodium (137-145) mmol/L Potassium (3.4-5.0) mmol/L Chloride (98-107) mmol/L Carbon Dioxide (22-30) mmol/L Anion Gap (4-12) mmol/L BUN (7-17) mg/dL Creatinine (0.7-1.0) mg/dL Estim Creat Clear Calc ml/min Estimated GFR (59 - ) Glucose (65-110) mg/dL Calcium (8.4-10.2) mg/dL Total Bilirubin (0.2-1.3) mg/dL AST (14-36) U/L ALT (6-35) U/L Alkaline Phosphatase (38-126) U/L Troponin I < 0.012 (0.000-0.034) ng/mL NT-Pro-B Natriuret Pep (19.9-100) pg/mL Total Protein (6.3-8.2) g/dL Albumin (3.5-5.1) g/dL Urine Color Yellow (Yellow) Urine Appearance Cloudy H (Clear) Urine pH 7.0 (5.0-9.0) Ur Specific [place] 1.011 (1.001-1.035) Urine Protein Negative (Negative) mg/dL Urine Glucose (UA) Negative (Negative) mg/dL Urine Ketones 1+ H (Negative) mg/dL Ur Blood (Man) Negative (Negative) Urine Nitrate Negative (Negative) Urine Bilirubin Negative (Negative) Urine Urobilinogen 0.2 (<2.0) mg/dL Add Ur Microanalysis Reviewed Leukocyte Esterase Rfl 2+ H (Negative) SUJEY/UL Urine RBC 0-2 (0-2) /hpf Urine WBC 0-5 (0-3) /hpf Ur Squamous Epith Cells None seen (Few) /hpf Urine Bacteria None seen /hpf Urine Casts 3-5 Influenza A (RT-PCR) (Negative) Influenza B (RT-PCR) (Negative) RSV (RT-PCR) (Negative) SARS-CoV-2 RNA (RT-PCR) (Negative) ABG Data ABG results: 01/25/25 14:48 VBG pH 7.531 H* VBG pCO2 31.3 L VBG pO2 40.2 VBG HCO3 25.6 O2 Delivery Device Room air O2 Liters/Min Not Reportable FiO2 21 Discharge Plan Discharge Clinical Impression: Constipation, Abdominal pain Patient Disposition: Home Condition: Stable Instructions: Antibiotic Form, Constipation (DC), Abdominal Pain (ED) Additional Instructions: You were seen in the emergency department for lower abdominal pain. This may be due to constipation. Please trial a course of docusate and senna as stool softeners. Please use Tylenol as needed for pain. Please follow-up with your primary care physician next 2-3 days. You develop any worsening symptoms such as severe abdominal pain, fevers, inability to have a bowel movement or pass gas please return to the ED for re-evaluation. Patient Language: Bahamian Prescriptions: New docusate calcium 240 mg capsule 240 mg PO DAILY Qty: 30 0RF senna 8.6 mg capsule 8.6 mg PO DAILY Qty: 30 0RF No Action cholecalciferol (vitamin D3) 50 mcg (2,000 unit) capsule 50 mcg PO DAILY triamcinolone acetonide [Nasacort] 55 mcg aerosol,spray 2 spray intranasal DAILY Rx Instructions: administer into each nostril Edarbyclor 40-12.5 mg tablet 1 tablet PO DAILY citrucel BYMOUTH DAILY aspirin [Marianna Low Dose Aspirin] 81 mg Tablet,Delayed Release (Dr/Ec) 81 mg PO DAILY multivit with min-folic acid [Adult One Daily Multivitamin] 0.4 mg Tablet 0.4 mg PO DAILY clonidine HCl 0.2 mg tablet See Rx Instructions .ROUTE .COMPLEX Qty: 180 1RF Dose Instruction: TAKE 2 TABLETS BY MOUTH EVERY EVENING Rx Instructions: TAKE 2 TABLETS BY MOUTH EVERY EVENING amlodipine 10 mg tablet 10 mg PO DAILY Qty: 90 1RF amitriptyline 25 mg tablet See Rx Instructions .ROUTE .COMPLEX Qty: 90 1RF Dose Instruction: TAKE 1 TABLET BY MOUTH EVERY NIGHT AT BEDTIME Rx Instructions: TAKE 1 TABLET BY MOUTH EVERY NIGHT AT BEDTIME simvastatin 40 mg tablet See Rx Instructions .ROUTE .COMPLEX Qty: 90 1RF Dose Instruction: TAKE 1 TABLET BY MOUTH DAILY Rx Instructions: TAKE 1 TABLET BY MOUTH DAILY Follow-up/Referrals: Freda Villa MD [Primary Care Provider, Family Practice] - 2 Days Referral Note: Abdominal pain
[2025-01-25] MEDS: LACTATED RINGERS 2,000 ML 999 ML IV CONT (15:19)
[2025-01-25 15:30] VITALS: O2SAT 100
[2025-01-25 15:39] VITALS: BP 137/71; PULSE 96; RESP 16; O2SAT 100
[2025-01-25 15:45] LABS: Influenza A QL RT-PCR Negative (Negative); Influenza B QL RT-PCR Negative (Negative); RSV RNA, RT-PCR Negative (Negative); SARS-CoV-2 RNA PCR Negative (Negative)
--- NOTE | 2025-01-25 17:45 | ECG_ITS ---
Test Date: 2025-01-25 17:54:09 Measurements Intervals [place] Rate: 100 P: 52 [place]: 128 QRS: 16 QRSD: 65 T: 61 QT: 338 QTc: 436 Interpretive Statements SINUS TACHYCARDIA LOW QRS VOLTAGE IN PRECORDIAL LEADS [QRS DEFLECTION < 1.0 mV IN CHEST LEADS] ANTEROSEPTAL MYOCARDIAL INFARCTION , PROBABLY OLD [40+ ms Q WAVE IN V1-V4] ABNORMAL ECG Compared to ECG 01/25/2025 13:53:41 Myocardial infarct finding now present Sinus rhythm no longer present Electronically Signed On 01-26-2025 11:07:08 CDT by Paul Horowitz M.D.
[2025-01-25 18:09] LABS: Add Urine Microscopic? YES; Appearance Urine Cloudy (Clear); Glucose Urine UA Negative (Negative); Leukocyte Esterase Ur 2+ LEU/UL (Negative); Need Manual Microscopic Reviewed; Nitrate Urine Negative (Negative); Specific Grav Ur 1.011 (1.001-1.035)
[2025-01-25 18:34] LABS: Troponin I < 0.012 ng/mL (0.000-0.034)
[2025-01-25] MEDS: KETOROLAC 15 MG/ML VIAL (*BKC) IV PUSH (19:22)
[2025-01-25 19:34] VITALS: BP 132/74; PULSE 68; RESP 18; TEMP 37.1; O2SAT 99
== END 2025-01-25 19:35 | disposition home or self-care (01) ==
PROVIDERS: Emergency Provider Emergency Medicine; PCP Family Medicine
DX: K59.00 Constipation, unspecified (principal); R10.30 Lower abdominal pain, unspecified; R06.02 Shortness of breath; E78.2 Mixed hyperlipidemia; M85.80 Other specified disorders of bone density and structure, unspecified site; Z90.710 Acquired absence of both cervix and uterus; Z20.822 Contact with and (suspected) exposure to COVID-19; Z79.82 Long term (current) use of aspirin; Z79.899 Other long term (current) drug therapy; R94.31 Abnormal electrocardiogram [ECG] [EKG]; R00.0 Tachycardia, unspecified
CPT/HCPCS: 36415; 71046; 71260; 74177; 80053; 81001; 82803; 83880; 84484; 85025; 85380; 87086; 87637; 93005; 96361; 96374; 96375; 99284; J1171; J1885; J7120; Q9967